=== PATIENT | female | born 1950 | race Hispanic/Latino ===

== ENCOUNTER 2018-04-19 16:24 | Emergency (ER) | payer SELFPAY ==
[~2018-04-19] VITALS: Ht 147.3 cm; Wt 86.0 kg
[~2018-04-19 16:24] MED LIST: CYCLOBENZAPR10 MG PO; GABAPENTIN300 MG PO; GLIPIZIDE5 M2 PO; LEVOTHYROXIN50 MCG PO; MEDDOSEPAK PO; ULTRAM50 M1 PO
[2018-04-19 18:00] VITALS: BP 164/87
== END 2018-04-19 18:00 | disposition short-term general hospital (02) | DRG 916 ==
LOC: ED 16:24
PROC: 0BH17EZ Insertion of Endotracheal Airway into Trachea, Via Natural or Artificial Opening (ICD-10-PCS; principal; 2018-04-19)
PROC: 02HV33Z Insertion of Infusion Device into Superior Vena Cava, Percutaneous Approach (ICD-10-PCS; 2018-04-19)
DX: T78.3XXA Angioneurotic edema, initial encounter (principal); I47.1 Supraventricular tachycardia; E11.9 Type 2 diabetes mellitus without complications

== ENCOUNTER 2019-03-19 10:38 | Emergency (ER) | payer SELFPAY ==
[~2019-03-19] VITALS: Ht 147.3 cm; Wt 80.0 kg
[2019-03-19] MEDS ORDERED: CHERATUSSIN PO (10:55)
[2019-03-19] MEDS ORDERED: DOXYCYC MONO100 M2 PO ×2 (10:55→15:01)
[2019-03-19] MEDS ORDERED: PAROXETINE10 MG PO (11:02)
[2019-03-19] MEDS ORDERED: NOVOLIN 70/30 RELION SC ×2 (11:03→11:04)
[2019-03-19 11:05] VITALS: BP 158/83
== END 2019-03-19 11:05 | disposition home or self-care (01) | DRG 153 ==
LOC: ED 10:38
DX: J06.9 Acute upper respiratory infection, unspecified (principal); E11.9 Type 2 diabetes mellitus without complications; Z79.4 Long term (current) use of insulin

== ENCOUNTER 2022-05-20 07:32 | Day surgery (SDC) | payer MEDICARE ==
[~2022-05-20 07:32] MED LIST changes: +CHERATUSSIN PO; +DOXYCYC MONO100 M2 PO; +GABAPENTIN TINY50 MG; +GABAPENTIN100 MG PO; +IBANDRONATE SO150 MG PO; +LOSARTAN POTASS25 MG PO; +NOVOLIN 70/30 INNLT SC; +NOVOLIN 70/30 RELION SC; +PAROXETINE10 MG PO
[2022-05-20 10:10] VITALS: BP 150/56
== END 2022-05-20 09:58 | disposition home or self-care (01) ==
LOC: ORM 07:32
PROVIDERS: ATTEND Surgery
PROC: 0DJD8ZZ Inspection of Lower Intestinal Tract, Via Natural or Artificial Opening Endoscopic (ICD-10-PCS; principal; 2022-05-20)
DX: Z12.11 Encounter for screening for malignant neoplasm of colon (principal); K64.8 Other hemorrhoids; I10 Essential (primary) hypertension; E11.9 Type 2 diabetes mellitus without complications; E03.9 Hypothyroidism, unspecified; Z79.4 Long term (current) use of insulin; Z80.0 Family history of malignant neoplasm of digestive organs

== ENCOUNTER 2023-05-09 02:48 | Emergency (ER) | payer MEDICARE ==
[2023-05-09] VITALS (8 sets, daily range): BP systolic 161–192; BP diastolic 70–93
[~2023-05-09] VITALS: Ht 149.9 cm; Wt 102.0 kg
[2023-05-09 03:37] LABS: BASO% 0.2 % (0-3); EOS% 0.8 % (0-8); HEMATOCRIT 40.7 % (37.0-47.0); HEMOGLOBIN 13.1 g/dl (12.0-16.0); IMMATURE GRANULOCYTES 0.6 % (0.0-5.0); LYMPH% 19.3 % (15-41); MEAN CORPUSCULAR HGB 30.3 pG CALC (26.0-32.0); MEAN CORPUSCULAR HGB CONC 32.2 g/dL CAL (32.0-36.0); NEUT# 6.91 thou/uL (2.00-7.15); NEUT% 70.1 % (42-76); RED BLOOD COUNT 4.33 mill/uL (4.20-5.60); RED CELL DISTRI WIDTH 12.5 % (11.5-15.5)
[2023-05-09] MEDS ORDERED: LYRICA75 MG PO (03:47)
[2023-05-09] MEDS ORDERED: DICLOFENAC75 MG PO (03:48)
[2023-05-09 04:03] LABS: ALBUMIN 4.3 g/dL (3.2-5.0); ALKALINE PHOSPHATASE 87 u/l (38-126); ANION GAP 10 (6-22 (CALC)); BILIRUBIN, TOTAL 0.3 mg/dL (0.02-1.3); BUN 17 mg/dL (8-23); BUN/CREATININE RATIO 32 (12-20 (CALC)); CARBON DIOXIDE 28 mmol/l (22-30); CHLORIDE 108 mmol/l (95-108); CREATININE 0.5 mg/dL (0.5-1.0); GFR FOR AFR.AMER. > 60 ML/MIN (>=60 (CALC)); GFR OTHER RACES > 60 ML/MIN (>=60 (CALC)); POTASSIUM 3.7 mmol/l (3.5-5.1); PROTHROMBIN TIME 9.8 SECONDS (9.0-12.5); SGOT/AST 26 u/l (9-36); SODIUM 142 mmol/l (137-146); TOTAL PROTEIN 8.1 g/dL (6.3-8.2)
[2023-05-09] MEDS ORDERED: AMOXICILLIN & POT CLAVULANATE 875 MG/TAB PO ONE (05:00)
[2023-05-09 05:29] LABS: URINE BILIRUBIN - DIPSTICK Negative (NEGATIVE); URINE BLOOD DIPSTICK Trace-lysed (NEGATIVE); URINE COLOR Yellow; URINE GLUCOSE - DIPSTICK Negative (NEGATIVE); URINE KETONE Negative (NEGATIVE); URINE LEUK ESTERASE Negative (NEGATIVE); URINE NITRITE - DIPSTICK Negative (Negative); URINE PROTEIN - DIPSTICK Trace mg/dL (NEG-TRACE); URINE SPECIFIC GRAVITY 1.025
[2023-05-09] MEDS ORDERED: REFRESH PLUS0.5 % OU (05:57)
[2023-05-09] MEDS ORDERED: METFORMIN500 M2 PO (05:57)
[2023-05-09] MEDS ORDERED: AMOX/K CLAV875 M1 PO (05:57)
== END 2023-05-09 06:18 | disposition home or self-care (01) ==
LOC: ED 02:48
PROVIDERS: Family Medicine
DX: H66.93 Otitis media, unspecified, bilateral (principal); E11.9 Type 2 diabetes mellitus without complications; Z79.4 Long term (current) use of insulin; Z20.822 Contact with and (suspected) exposure to COVID-19